=== PATIENT | female | born 1935 | race Caucasian/White ===

== ENCOUNTER 2022-12-21 18:07 | Inpatient (IN) | payer MEDICARE, OTHER ==
[~2022-12-21] VITALS: Ht 162.6 cm; Wt 50.0 kg
--- NOTE | 2022-12-21 19:15 | NUR ---
JAZ- MIKE Frederick OF PT PHONE:[phone]
[2022-12-21] MEDS ORDERED: morphine 2 MG/ML inj. syringe IV STA (19:22)
[2022-12-21] MEDS ORDERED: ondansetron/PF 4mg/2ml inj IV ONE (19:25)
[2022-12-21 20:53] LABS: APTT 25 SECONDS (22-32); PROTHROMBIN TIME 10.9 SECONDS (9.0-12.0)
[2022-12-21] MEDS ORDERED: morphine 2 MG/ML inj. syringe IV PRN (20:55)
[2022-12-21 20:59] LABS: BASOPHILS % (AUTO) 0.4 % (0-1); EOSINOPHILS # (AUTO) 0.1 X10'3 (0-0.9); HEMOGLOBIN 13.5 g/dl (12.0-16.0); LYMPHOCYTES % (AUTO) 8.2 % (21-51); MEAN CORPUSCULAR HGB CONC 33.8 g/dL (33.0-36.5); MEAN CORPUSCULAR VOLUME 91.9 FL (78-98); MEAN PLATELET VOLUME 8.4 FL (7.4-10.4); MONOCYTES # (AUTO) 0.5 X10'3 (0-0.9); NEUTROPHILS # (AUTO) 10.2 X10'3 (1.8-7.7); NEUTROPHILS % (AUTO) 86.4 % (42-75); PLATELET COUNT 204 X10'3 (140-440); RED BLOOD COUNT 4.36 X10'6 (4.20-5.60); RED CELL DISTRIBUTION WIDTH 13.5 % (11.5-14.5); WHITE BLOOD COUNT 11.8 X10'3 (4.5-11.0)
[2022-12-21 21:05] LABS: ALANINE AMINOTRANSFERASE 17 U/L (12-78); ALBUMIN 3.5 G/DL (3.4-5.0); ALBUMIN/GLOBULIN RATIO 1.1 (1.1-1.5); ALKALINE PHOSPHATASE 54 IU/L (46-116); ANION GAP 4 (8-16); ASPARTATE AMINO TRANSFERASE 25 U/L (10-37); BILIRUBIN,TOTAL 0.4 MG/DL (0.1-1.0); BLOOD UREA NITROGEN 22 MG/DL (7-18); BUN/CREATININE RATIO 23.2 (10.0-20.0); CALCIUM 9.4 MG/DL (8.5-10.1); CHLORIDE 105 MMOL/L (99-107); CREATININE 0.95 MG/DL (0.40-0.90); GLUCOSE 137 MG/DL (70-104); POTASSIUM 3.9 MMOL/L (3.5-5.1); SODIUM 140 MMOL/L (135-145); TOTAL CARBON DIOXIDE 30.9 MMOL/L (24-32); TOTAL PROTEIN 6.7 G/DL (6.4-8.2); eCRCL 34 ML/MIN; eGFR 56 ML/MIN
[2022-12-21] MEDS: morphine 2 MG/ML inj. syringe IV PRN (21:12)
[2022-12-22] MEDS ORDERED: magnesium 2GM in 50ml NS 50 ML IV PRN (00:45)
[2022-12-22] MEDS ORDERED: acetaminophen 325mg tablet PO PRN (00:45)
[2022-12-22] MEDS ORDERED: magnesium 4gm in 100ml NS 100 ML IV PRN (00:45)
[2022-12-22] MEDS ORDERED: ondansetron/PF 4mg/2ml inj IV PRN (00:45)
[2022-12-22] MEDS ORDERED: potassium Cl 20 mEq SR tablet PO PRN ×2 (00:45)
[2022-12-22] MEDS ORDERED: potassium Cl 40MEQ/1/2NS 520ml 520 ML IV PRN (00:45)
[2022-12-22] MEDS ORDERED: morphine 2 MG/ML inj. syringe IV PRN (00:45)
[2022-12-22] MEDS ORDERED: magnesium Cl slow-release 64mg tablet PO PRN (00:45)
[2022-12-22] MEDS ORDERED: magnesium hydroxide 30ml (MOM) UD suspension PO PRN (00:45)
[2022-12-22] MEDS ORDERED: mag hydrox/Alum hydrox/simeth 30ml oral suspension PO PRN (00:45)
[2022-12-22] MEDS: normal saline 1000ml 1,000 ML IV SCH ×2 (01:27→13:52)
[2022-12-22 02:56] LABS: POTASSIUM 4.2 MMOL/L (3.5-5.1)
[2022-12-22] MEDS: morphine 2 MG/ML inj. syringe IV PRN ×5 (03:44→21:17)
--- NOTE | 2022-12-22 06:47 | NUR ---
cALLED dR. Hoffman IN REGARDS TO [facility]
[2022-12-22] MEDS ORDERED: amLODIPine 5mg tablet PO ONE (06:50)
--- NOTE | 2022-12-22 06:51 | NUR ---
pt bp 201/81 pulse 77 verbal order for 5 of norvasc as pt does not normally struggle with high blood pressure
--- NOTE | 2022-12-22 06:54 | NUR ---
PER DR HUANG PT MAY HAVE NORVASC WITH A SIP OF WATER AT THIS TIME. PT WILL GO FOR SURGERY LATER TODAY.
[2022-12-22] MEDS ORDERED: SILD20TA2 PO (07:12)
[2022-12-22] MEDS ORDERED: QUET50TA94 PO (07:12)
[2022-12-22] MEDS ORDERED: HALO1TAB PO (07:12)
[2022-12-22] MEDS ORDERED: ACET80TA (07:12)
[2022-12-22] MEDS ORDERED: SILD20TA2 (07:12)
[2022-12-22] MEDS: K and/or MAG REPLACEMENT MC SCH ×2 (08:17→20:00)
[2022-12-22] MEDS: docusate sod 100mg capsule PO SCH ×2 (08:27→20:00)
--- NOTE | 2022-12-22 09:23 | NUR ---
dr allen would like to give more morphine for pain and elevation of bp
[2022-12-22] MEDS: hydrALAZINE 20mg/ml inj. IV PRN ×2 (10:42→16:26)
--- NOTE | 2022-12-22 11:10 | NUR ---
Pt provided morphine for 10/10 pain and hydralazine for BP SYS 188
--- NOTE | 2022-12-22 13:17 | NUR ---
report given to matt lynn. XPLVN
[2022-12-22 13:57] VITALS: BP 176/72; PULSE 90; RESP 14; TEMP 97.3; O2SAT 97
[2022-12-22 14:16] VITALS: RESP 17; O2SAT 95
--- NOTE | 2022-12-22 17:05 | NUR ---
PAGER ID: [phone] MESSAGE: CANDY MONTEJO, ORTHO, [id number]. RE: [phone]. I ASKED [facility] FOR MED REC. CAME BACK FAXED, BUT SAME MEDS IN OUR [facility] REC SYSTEM. JARED.
[2022-12-22 18:00] VITALS: BP 155/63; PULSE 108; RESP 18; TEMP 97.7; O2SAT 98
--- NOTE | 2022-12-22 18:37 | NUR ---
Problems reprioritized. Patient report given TO LICO GUPTA, questions answered & plan of care reviewed with .
--- NOTE | 2022-12-22 19:06 | NUR ---
Patient in room ORTHO 4007. I have received report from NIKIA GUPTA and had the opportunity to ask questions and assume patient care.
[2022-12-22] MEDS ORDERED: ACET-2778 PO (19:11)
[2022-12-22 20:00] VITALS: RESP 12; O2SAT 98
[2022-12-22] MEDS: moxifloxacin 0.5% ophthalmic drops 3ml EACHEYE SCH (20:04)
[2022-12-22] MEDS: haloperidol 1mg tablet PO SCH (20:04)
[2022-12-22] MEDS ORDERED: QUETIAPINE 50 MG TAB.SR.24H PO SCH (21:00)
[2022-12-22 22:00] VITALS: BP 128/43; PULSE 90; RESP 14; TEMP 98.4; O2SAT 98
[2022-12-23] VITALS (19 sets, daily range): BP systolic 133–156; BP diastolic 56–79; PULSE 65–97; RESP 11–20; TEMP 96.8–99.4; O2SAT 93–99
--- NOTE | 2022-12-23 00:40 | NUR ---
SURGICAL SCRUB AND LINEN CHANGE DONE. PATIENT TOLERATED WELL, F/C PATENT AND DRNG ADEQUATE AMT. URINE. CALL LIGHT IN REACH.
[2022-12-23] MEDS: normal saline 1000ml 1,000 ML IV SCH ×2 (03:45→21:58)
--- NOTE | 2022-12-23 06:41 | NUR ---
Problems reprioritized. Patient report given, questions answered & plan of care reviewed with YOVANNY GUPTA.
[2022-12-23] MEDS: heparin, porcine 5000 units/ml vial SQ SCH ×2 (07:00→19:48)
[2022-12-23] MEDS ORDERED: cloNIDine hcl/PF 100mcg/ml inj ONE (07:11)
--- NOTE | 2022-12-23 07:20 | NUR ---
To OR via bed
[2022-12-23] MEDS ORDERED: tranexamic acid 100mg/ml inj. ONE (07:28)
[2022-12-23] MEDS ORDERED: BUPIVAcaine/dex-water/PF 7.5 mg/ml 2ml ampul ONE (07:28)
[2022-12-23] MEDS ORDERED: midazolam 1 mg/ML 2ml injection ONE (07:28)
[2022-12-23] MEDS ORDERED: LIDOcaine 2% (20mg/ml) 5ml vial ONE (07:28)
[2022-12-23] MEDS ORDERED: hydrALAZINE 20mg/ml inj. IV PRN (07:30)
[2022-12-23] MEDS ORDERED: proCHLORperazine 10 MG/2 ml inj IV PRN (07:30)
[2022-12-23] MEDS ORDERED: ondansetron/PF 4mg/2ml inj IV PRN (07:30)
[2022-12-23] MEDS ORDERED: acetaminophen 1,000mg/100ml IV 100 ML IV PRN (07:30)
[2022-12-23] MEDS ORDERED: ringers solution, lacted 1,000 ML IV SCH (07:30)
[2022-12-23] MEDS ORDERED: meperidine/PF 25mg/ml syringe IV PRN ×3 (07:30)
[2022-12-23] MEDS ORDERED: labetalol 20mg/4ml (5mg/ml) syringe IV PRN (07:30)
[2022-12-23] MEDS ORDERED: morphine 2 MG/ML inj. syringe IV PRN (07:30)
[2022-12-23 08:00] LABS: BASOPHILS % (AUTO) 0.3 % (0-1); EOSINOPHILS # (AUTO) 0.1 X10'3 (0-0.9); EOSINOPHILS % (AUTO) 0.4 % (0-6); HEMATOCRIT 38.5 % (35.0-45.0); HEMOGLOBIN 12.8 g/dl (12.0-16.0); LYMPHOCYTES # (AUTO) 0.8 X10'3 (1.1-4.8); LYMPHOCYTES % (AUTO) 6.3 % (21-51); MEAN CORPUSCULAR HEMOGLOBIN 30.7 PG (27.0-31.0); MEAN CORPUSCULAR HGB CONC 33.4 g/dL (33.0-36.5); MEAN CORPUSCULAR VOLUME 92.1 FL (78-98); MEAN PLATELET VOLUME 8.7 FL (7.4-10.4); MONOCYTES # (AUTO) 0.8 X10'3 (0-0.9); MONOCYTES % (AUTO) 6.4 % (2-12); NEUTROPHILS # (AUTO) 10.5 X10'3 (1.8-7.7); NEUTROPHILS % (AUTO) 86.6 % (42-75); PLATELET COUNT 165 X10'3 (140-440); RED BLOOD COUNT 4.17 X10'6 (4.20-5.60); RED CELL DISTRIBUTION WIDTH 13.7 % (11.5-14.5); WHITE BLOOD COUNT 12.1 X10'3 (4.5-11.0)
[2022-12-23] MEDS: K and/or MAG REPLACEMENT MC SCH ×2 (08:00→20:00)
[2022-12-23] MEDS: haloperidol 1mg tablet PO SCH ×2 (08:00→19:46)
[2022-12-23 08:13] LABS: ALANINE AMINOTRANSFERASE 15 U/L (12-78); ALBUMIN 2.9 G/DL (3.4-5.0); ALBUMIN/GLOBULIN RATIO 0.9 (1.1-1.5); ALKALINE PHOSPHATASE 53 IU/L (46-116); ANION GAP 7 (8-16); ASPARTATE AMINO TRANSFERASE 27 U/L (10-37); BILIRUBIN,TOTAL 0.6 MG/DL (0.1-1.0); BLOOD UREA NITROGEN 14 MG/DL (7-18); BUN/CREATININE RATIO 18.4 (10.0-20.0); CHLORIDE 106 MMOL/L (99-107); CREATININE 0.76 MG/DL (0.40-0.90); GLUCOSE 121 MG/DL (70-104); MAGNESIUM 1.8 MG/DL (1.5-2.4); POTASSIUM 3.8 MMOL/L (3.5-5.1); SODIUM 141 MMOL/L (135-145); TOTAL CARBON DIOXIDE 28.4 MMOL/L (24-32); TOTAL PROTEIN 6.3 G/DL (6.4-8.2); eCRCL 41 ML/MIN; eGFR 72 ML/MIN
[2022-12-23] MEDS ORDERED: ROPIVAcaine 0.5% (5mg/ml) 30ml vial ONE (08:28)
[2022-12-23] MEDS ORDERED: propofol inj 20 ML IV ONE ×2 (08:29→08:54)
[2022-12-23] MEDS ORDERED: ceFAZolin 1000mg inj ONE ×2 (08:29)
[2022-12-23] MEDS ORDERED: dexamethasone sod phosphate 4mg/ml inj. ONE (08:29)
[2022-12-23] MEDS ORDERED: vancomycin 1,000mg inj ONE (08:51)
[2022-12-23] MEDS ORDERED: vancomycin 1,000mg inj IVT ONE (09:07)
--- NOTE | 2022-12-23 09:30 | NUR ---
PT ARRIVED TO VIA BED ACCOMPANIED BY DR. TERRY-ANESTHESIA REPORT GIVEN, PT SLEEPING STILL AFTER ANESTHESIA, VSS, PT HAS HX OF DEMENTIA-WAS USING TABS ALARM ON FLOOR, WAS GIVEN SPINAL BLOCK AND GRANT BLOCK TO RIGHT HIP, SENSATION STILL DIMINISHED TO LOWER EXTREMITIES, PULSES PRESENT TO BLE, ISLAND DRSG TO RIGHT HIP-CDI, KNEE IMMOBILIZER TO RIGHT LEG TO PREVENT BENDING KNEE, SCDS ON. DENIES PAIN
--- NOTE | 2022-12-23 10:30 | NUR ---
PT ABLE TO ANSWER SIMPLE QUESTIONS THOUGH STILL SLEEPY, SENSATION RETURNING TO BLE-ABLE TO MOVE TOES, GIVEN IV TYLENOL FOR PAIN-APPEARS COMFORTABLE, VSS, PEDAL PULSES PRESENT AND UNCHANGED, NO CHANGES IN DRESSING, DTR CALLED-AWARE OF PT STATUS, REPORT CALLED TO YOVANNY GUPTA-ALL QUESTIONS ANSWERED, PT RETURNED TO ROOM 4007, BED LOW AND LOCKED, CALL LIGHT IN REACH, AIDE IN TO ASSIST, RN AWARE OF ARRIVAL.
[2022-12-23] MEDS: docusate sod 100mg capsule PO SCH ×2 (13:41→19:46)
[2022-12-23] MEDS: moxifloxacin 0.5% ophthalmic drops 3ml EACHEYE SCH ×2 (13:42→19:46)
[2022-12-23] MEDS: sildenafil citrate 20mg tablet PO SCH (13:44)
--- NOTE | 2022-12-23 14:09 | NUR ---
Low esther consult: Pt is s/p hip surgery today 12/23 due to a fall per EMR. Pt presents with a esther score of 12 per EMR. No noted open wounds per RN physical assessment at this time. Due to pt POD#0 today, pt is not appropriate for interview at this time. Pt presents with a low BMI of 18.9 and gurney scaled wt of 50kg (110 pounds) this admit with no prior wt hx in EMR. Pending RN malnutrition assessment. Pt presents with severe weakness to left leg and no edema at this time. Documented 0% x1 meal though noted pt was NPO at the time per EMR. Due to missing information, pt does not meet a minimum of two malnutrition criteria at this time. Will monitor for signs and symptoms of malnutrition. Addendum: 12/23/22 at [address] Amended: Links added.
[2022-12-23] MEDS ORDERED: QUET50TA24 PO (17:10)
--- NOTE | 2022-12-23 18:30 | NUR ---
Report to Jessica GUPTA
[2022-12-23] MEDS: morphine 2 MG/ML inj. syringe IV PRN (18:58)
[2022-12-23] MEDS: QUEtiapine 25mg tablet PO SCH (21:02)
[2022-12-24] VITALS (7 sets, daily range): BP systolic 134–190; BP diastolic 52–70; PULSE 83–103; RESP 16–20; TEMP 98.8–99.9; O2SAT 93–96
[2022-12-24] MEDS: normal saline 1000ml 1,000 ML IV SCH ×3 (05:22→20:41)
--- NOTE | 2022-12-24 07:10 | NUR ---
Call out to Dr Ledesma regarding no PT order
[2022-12-24 07:15] LABS: BASOPHILS % (AUTO) 0.4 % (0-1); EOSINOPHILS % (AUTO) 0.3 % (0-6); HEMATOCRIT 35.6 % (35.0-45.0); LYMPHOCYTES % (AUTO) 8.2 % (21-51); MEAN CORPUSCULAR HEMOGLOBIN 30.5 PG (27.0-31.0); MEAN CORPUSCULAR HGB CONC 33.6 g/dL (33.0-36.5); MEAN CORPUSCULAR VOLUME 90.9 FL (78-98); MEAN PLATELET VOLUME 8.7 FL (7.4-10.4); MONOCYTES # (AUTO) 0.9 X10'3 (0-0.9); MONOCYTES % (AUTO) 7.5 % (2-12); NEUTROPHILS # (AUTO) 10.4 X10'3 (1.8-7.7); NEUTROPHILS % (AUTO) 83.6 % (42-75); PLATELET COUNT 168 X10'3 (140-440); RED BLOOD COUNT 3.92 X10'6 (4.20-5.60); RED CELL DISTRIBUTION WIDTH 13.5 % (11.5-14.5); WHITE BLOOD COUNT 12.4 X10'3 (4.5-11.0)
[2022-12-24 07:40] LABS: TOTAL CARBON DIOXIDE 26.8 MMOL/L (24-32)
[2022-12-24] MEDS: K and/or MAG REPLACEMENT MC SCH ×2 (08:00→20:00)
[2022-12-24 08:39] LABS: ALANINE AMINOTRANSFERASE 16 U/L (12-78); ALBUMIN 2.5 G/DL (3.4-5.0); ALBUMIN/GLOBULIN RATIO 0.8 (1.1-1.5); ALKALINE PHOSPHATASE 51 IU/L (46-116); ANION GAP 7 (8-16); ASPARTATE AMINO TRANSFERASE 36 U/L (10-37); BILIRUBIN,TOTAL 0.7 MG/DL (0.1-1.0); BLOOD UREA NITROGEN 15 MG/DL (7-18); BUN/CREATININE RATIO 19.2 (10.0-20.0); CALCIUM 8.7 MG/DL (8.5-10.1); CHLORIDE 103 MMOL/L (99-107); CREATININE 0.78 MG/DL (0.40-0.90); GLUCOSE 133 MG/DL (70-104); MAGNESIUM 1.7 MG/DL (1.5-2.4); POTASSIUM 3.4 MMOL/L (3.5-5.1); SODIUM 137 MMOL/L (135-145); TOTAL PROTEIN 5.8 G/DL (6.4-8.2); eCRCL 40 ML/MIN; eGFR 70 ML/MIN
[2022-12-24] MEDS: docusate sod 100mg capsule PO SCH ×2 (08:50→20:40)
[2022-12-24] MEDS: haloperidol 1mg tablet PO SCH ×2 (08:55→20:40)
[2022-12-24] MEDS: sildenafil citrate 20mg tablet PO SCH (08:55)
[2022-12-24] MEDS: heparin, porcine 5000 units/ml vial SQ SCH ×2 (08:56→20:41)
[2022-12-24] MEDS: moxifloxacin 0.5% ophthalmic drops 3ml EACHEYE SCH ×2 (08:56→20:42)
--- NOTE | 2022-12-24 14:32 | NUR ---
PRESSURE ULCER EDUCATION: DEFINITION: A pressure ulcer is an area of skin that breaks down when you stay in one position too long. The constant pressure against the skin reduces the blood flow to that area and the affected tissue dies. CAUSES: "Being bedridden or in a wheelchair "Fragile skin "Having a chronic condition, such as diabetes or vascular disease "Inability to move certain parts of your body without assistance "Older age "Incontinence of urine or stool SYMPTOMS: "A reddened area that DOES NOT turn white when pressed on - this can be the beginning of a pressure ulcer "A blister, deep sore or a crater - these can be advanced pressure ulcers FIRST AID: "Relieve the pressure on this area "Keep the area clean and dry "Call your primary doctor if you see any of the above symptoms "DO NOT massage the area "DO NOT use a donut shaped or ring shaped pillow- these actually interfere with the blood flow and cause complications PREVENTION: "Check for pressure ulcers everyday "Change position at least every two hours to relieve pressure "Use items that help relieve pressure- pillows, sheepskin, foam padding, and powders. "Keep skin clean and dry "Eat healthy well balanced meals "Exercise daily IF YOU SEE ANY OF THESE SYMPTOMS WHILE IN THE HOSPITAL - TELL YOUR NURSE IMMEDIATELY. IF YOU SEE ANY OF THESE SYMPTOMS WHILE AT HOME OR HAVE ANY QUESTIONS OR CONCERNS ABOUT PRESSURE ULCERS - CALL YOUR PRIMARY DOCTOR IMMEDIATELY. Addendum: 12/24/22 at 1432 by Jessica Vieira LVN Amended: Links added.
--- NOTE | 2022-12-24 18:48 | NUR ---
Report to Brandi GUPTA
--- NOTE | 2022-12-24 18:50 | NUR ---
Patient in room ORTHO 4007. I have received report from YOVANNY GUPTA and had the opportunity to ask questions and assume patient care.
[2022-12-24] MEDS: QUEtiapine 25mg tablet PO SCH (20:40)
[2022-12-25 06:00] VITALS: BP 143/66; PULSE 139; RESP 16; TEMP 98.8; O2SAT 96
--- NOTE | 2022-12-25 06:19 | NUR ---
Problems reprioritized. Patient report given, questions answered & plan of care reviewed with YOVANNY GUPTA.
[2022-12-25 06:44] LABS: BASOPHILS % (AUTO) 0.3 % (0-1); EOSINOPHILS # (AUTO) 0.1 X10'3 (0-0.9); EOSINOPHILS % (AUTO) 1.3 % (0-6); HEMOGLOBIN 12.6 g/dl (12.0-16.0); LYMPHOCYTES % (AUTO) 9.5 % (21-51); MEAN CORPUSCULAR HEMOGLOBIN 31.1 PG (27.0-31.0); MEAN CORPUSCULAR HGB CONC 34.2 g/dL (33.0-36.5); MEAN CORPUSCULAR VOLUME 90.9 FL (78-98); MEAN PLATELET VOLUME 8.7 FL (7.4-10.4); MONOCYTES # (AUTO) 0.7 X10'3 (0-0.9); MONOCYTES % (AUTO) 7.3 % (2-12); NEUTROPHILS # (AUTO) 8.2 X10'3 (1.8-7.7); NEUTROPHILS % (AUTO) 81.6 % (42-75); PLATELET COUNT 163 X10'3 (140-440); RED BLOOD COUNT 4.07 X10'6 (4.20-5.60); RED CELL DISTRIBUTION WIDTH 13.4 % (11.5-14.5); WHITE BLOOD COUNT 10.1 X10'3 (4.5-11.0)
[2022-12-25 07:02] LABS: ALANINE AMINOTRANSFERASE 15 U/L (12-78); ALBUMIN 2.1 G/DL (3.4-5.0); ALBUMIN/GLOBULIN RATIO 0.6 (1.1-1.5); ALKALINE PHOSPHATASE 61 IU/L (46-116); ANION GAP 9 (8-16); ASPARTATE AMINO TRANSFERASE 34 U/L (10-37); BILIRUBIN,TOTAL 0.8 MG/DL (0.1-1.0); BLOOD UREA NITROGEN 10 MG/DL (7-18); BUN/CREATININE RATIO 14.5 (10.0-20.0); CHLORIDE 104 MMOL/L (99-107); CREATININE 0.69 MG/DL (0.40-0.90); GLUCOSE 136 MG/DL (70-104); MAGNESIUM 1.7 MG/DL (1.5-2.4); SODIUM 139 MMOL/L (135-145); TOTAL CARBON DIOXIDE 25.9 MMOL/L (24-32); TOTAL PROTEIN 5.7 G/DL (6.4-8.2); eCRCL 45 ML/MIN; eGFR 80 ML/MIN
[2022-12-25 07:04] LABS: CALCIUM 8.6 MG/DL (8.5-10.1)
--- NOTE | 2022-12-25 07:04 | NUR ---
Message: [phone] [place] sustained elevated heart rate in 160's, patient is sleeping YOVANNY [id number]
--- NOTE | 2022-12-25 07:09 | NUR ---
Page to Dr Kasper for K replacement orders. Critical K+ 3.0
[2022-12-25 07:45] VITALS: RESP 16
[2022-12-25] MEDS: K and/or MAG REPLACEMENT MC SCH (08:00)
[2022-12-25] MEDS: sildenafil citrate 20mg tablet PO SCH (09:19)
[2022-12-25] MEDS: docusate sod 100mg capsule PO SCH (09:19)
[2022-12-25] MEDS: haloperidol 1mg tablet PO SCH (09:19)
[2022-12-25] MEDS: heparin, porcine 5000 units/ml vial SQ SCH (09:22)
[2022-12-25] MEDS: moxifloxacin 0.5% ophthalmic drops 3ml EACHEYE SCH (09:24)
--- NOTE | 2022-12-25 09:55 | NUR ---
Page Dr Stallings PAGER ID: [phone] MESSAGE: [phone] [place] need K replacement orders 3.0 today. [id number] YOVANNY
[2022-12-25 10:00] VITALS: BP 120/70; PULSE 95; RESP 16; TEMP 97.9; O2SAT 98
[2022-12-25] MEDS ORDERED: potassium Cl 20 mEq SR tablet PO STA (10:56)
[2022-12-25] MEDS ORDERED: MOXI3DRO12 EACHEYE (13:16)
[2022-12-25] MEDS ORDERED: ACET-1008 PO (13:16)
[2022-12-25] MEDS ORDERED: HYDR-3965 PO (13:16)
== END 2022-12-25 17:25 | DRG 521 ==
LOC: ER 18:07 → ED HOLD 12-22 00:48 → ORTHO 4S 12-22 13:30
PROVIDERS: ADMIT Internal Medicine; ATTEND Family Medicine
PROC: 0SRR0JA Replacement of Right Hip Joint, Femoral Surface with Synthetic Substitute, Uncemented, Open Approach (ICD-10-PCS; principal; 2022-12-23 07:28)
DX: S72.031A Displaced midcervical fracture of right femur, initial encounter for closed fracture (principal); J95.821 Acute postprocedural respiratory failure; F03.92 Unspecified dementia, unspecified severity, with psychotic disturbance; Z66 Do not resuscitate; I10 Essential (primary) hypertension; I27.20 Pulmonary hypertension, unspecified; T41.45XA Adverse effect of unspecified anesthetic, initial encounter; Y92.238 Other place in hospital as the place of occurrence of the external cause; W01.0XXA Fall on same level from slipping, tripping and stumbling without subsequent striking against object, initial encounter; Y93.89 Activity, other specified; Y92.128 Other place in nursing home as the place of occurrence of the external cause; Y99.8 Other external cause status
CPT/HCPCS: 36415; 71045; 72170; 72190; 80053; 82948; 83735; 84132; 85025; 85610; 85730; 86885; 86900; 86901; 87081; 93005; 96374; 96375; 97110; 97161; 97530; 97535; 99285; A4314; A4615; A4618; A6213; A6446; A7000; C1758; C1776; G0378; J0131; J0360; J0690; J0735; J1100; J1644; J2250; J2270; J2405; J2704; J2795; J3370; J3490; J7030; J7060; J7120

== ENCOUNTER 2024-01-15 17:05 | Emergency (ER) | payer MEDICARE, OTHER ==
[~2024-01-15] VITALS: Ht 162.6 cm; Wt 63.0 kg
[~2024-01-15 17:05] MED LIST: ACET-1008 PO; HALO1TAB PO; MOXI3DRO12 EACHEYE; QUET50TA24 PO; SILD20TA14 PO
[2024-01-15] MEDS ORDERED: LEVO-65 PO (18:15)
[2024-01-15 18:19] VITALS: BP 158/84; PULSE 87; RESP 16; TEMP 99.4; O2SAT 98
== END 2024-01-15 18:20 | disposition home or self-care (01) ==
LOC: ER 17:07
DX: N39.0 Urinary tract infection, site not specified (principal); J06.9 Acute upper respiratory infection, unspecified; F03.90 Unspecified dementia, unspecified severity, without behavioral disturbance, psychotic disturbance, mood disturbance, and anxiety
CPT/HCPCS: 99284